=== PATIENT | male | born 1975 | race Caucasian/White ===

== ENCOUNTER 2019-06-20 11:15 | Emergency (ER) | payer OTHER ==
--- NOTE | 2019-06-20 12:07 | ED ---
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 He states his pain is 10 out of 10 located in the left hip which radiates down his groin. He states his pain is made worse with ambulation which he has been unable to do since this fall. he states every time he bears weight he hears loud clicking/ popping noise in his left hip. He denies numbness or tingling. He denies fever , chest pain, abdominal pain, shortness of breath, pain with urination, rash. She denies eccentric regulation. - History of Current Complaint Chief Complaint: EDHipPelvisInjury Stated Complaint: LT HIP PAIN PER PT Time Seen by Provider: 06/20/19 11:57 Hx Obtained From: Patient Mechanism Of Injury: Fall From A Standing Position Onset of Pain: Prior to Arrival Onset/Duration: Weeks Severity Initially: Severe Severity Currently: Severe Pain Intensity: 8 Pain Scale Used: 0-10 Numeric Timing: Constant Location: Is Discrete @ - Left hip Character Of Pain: Sharp Associated Signs And Symptoms: Negative: Swelling, Redness, Bruising, Fever Aggravating Factor(s): Standing, Ambulation, Movement, Weight Bearing, Stairs Alleviating Factor(s): Rest Able to Bear Weight: No - Allergies/Home Medications Allergies/Adverse Reactions: Allergies Allergy/AdvReac Type Severity Reaction Status Date / Time diphenhydramine Allergy Hives Verified 06/20/19 11:37 [From Benadryl] shellfish derived Allergy Anaphylatic Verified 06/20/19 11:37 Shock PMH/Surg Hx/FS Hx/Imm Hx Musculoskeletal History: Reports: Hx Joint Replacement - bilateral total hip arthroplasty due to avascular necrosis of unknown cause Infectious Disease History: No Infectious Disease History: Denies: Traveled Outside the [place] in Last 30 Days Review of Systems Constitutional: Negative Eyes: Negative ENT: Negative Cardiovascular: Negative Respiratory: Negative Gastrointestinal: Negative Genitourinary: Negative Positive: Arthralgia, Myalgia, Decreased ROM Skin: Negative Neurological: Negative Psychological: Normal All Other Systems Reviewed And Are Negative: Yes Physical Exam - Summary Physical Exam Summary: Examination reveals no signs of ecchymosis, edema, erythema BILATERALLY. Patient has full sensation in the lower extremities throughout. 2+ dorsalis pedis pulse bilaterally. 5 out of 5 strength noted in the right lower extremity and 4-5 strength noted in the left lower extremity. There is pain with palpation of the left hip and with movement. Patient is unable to bear weight or ambulate. Triage Information Reviewed: Yes Vital Signs On Initial Exam: Initial Vitals Temp Pulse Resp BP Pulse Ox 97.6 F 71 16 115/82 98 06/20/19 11:33 06/20/19 11:33 12 11:33 12 11:33 06/20/19 11:33 Vital Signs Reviewed: Yes Appearance: Positive: Well-Appearing, No Pain Distress, Well-Nourished Skin: Positive: Warm, Skin Color Reflects Adequate Perfusion Eyes: Positive: EOMI, LESLY ENT: Positive: Hearing grossly normal Respiratory/Lung Sounds: Positive: Clear to Auscultation, Breath Sounds Present Cardiovascular: Positive: RRR, S1, S2 Bowel Sounds: Positive: Present Musculoskeletal: Positive: Strength/ROM Intact Neurological: Positive: Sensory/Motor Intact, Alert, Oriented to Person Place, Time, Speech Normal Psychiatric: Positive: Normal AVPU Assessment: Alert Procedures - Sedation Patient Received Moderate/Deep Sedation with Procedure: No Diagnostics - Vital Signs Vital Signs Temp Pulse Resp BP Pulse Ox 06/20/19 11:33 97.6 F 71 16 115/82 98 - Laboratory Lab Statement: Any lab studies that have been ordered have been reviewed, and results considered in the medical decision making process. Lower Extremity Course/Dx - Course Course Of Treatment: Patient was evaluated in the emergency department for left hip pain. Patient seen and examined his vitals were stable. X-rays were taken which revealed no evidence of fracture or hardware malfunction in his pelvis. orthopedic surgeon, Dr. Dubon was consulted and [address] imaging. She stated if CT was negative for fracture patient may be discharged and evaluated as an outpatient. CT left lower extremity reveals no evidence of fracture. Patient was given ibuprofen for pain and told to follow-up as an outpatient for his symptoms. Patient agrees with plan. - Diagnoses Differential Diagnosis/HQI/PQRI: Positive: Arthritis, Contusion, Dislocation, Fracture (Closed), Sprain, Strain, Tendonitis Provider Diagnoses: Left hip pain - Physician Notifications Discussed Care Of Patient With: Viktoriya Dubon - obtain CT scan to rule out fracture. If CT negative for fracture patient can follow-up as an outpatient. Time Discussed With Above Provider: 13:12 Discharge ED - Sign-Out/Discharge Documenting (check all that apply): Patient Departure - Discharge Plan Condition: Stable Disposition: HOME Patient Education Materials: Hip Pain (ED) Referrals: No Primary Care Phys,NOPCP [Medical Doctor] - Additional Instructions: You were seen in the emergency department today for left hip pain. X-rays and CT imaging were done and showed no evidence of fracture or acute pathology. Please take ibuprofen as needed for pain 600 mg every 6 hours. Please follow- up with your facilities medical staff for further evaluation and management of your symptoms. Please return to the emergency department immediately if you develop any new or worsening symptoms. Return to activity as tolerated. Weight bearing as tolerated. - Billing Disposition and Condition Condition: STABLE Disposition: Home
[2019-06-20] MEDS ORDERED: Ibuprofen TAB* 400 MG PO ONE (13:35)
[2019-06-20 14:20] VITALS: BP 121/78
== END 2019-06-20 14:19 | disposition home or self-care (01) ==
LOC: ED 11:15
DX: M25.552 Pain in left hip (principal); Z96.643 Presence of artificial hip joint, bilateral; Z88.8 Allergy status to other drugs, medicaments and biological substances
CPT/HCPCS: 72192; 99282; A9270-GY